=== PATIENT | female | born 1985 | race Caucasian/White ===

== ENCOUNTER → 2024-08-13 10:56 | Outpatient (CLI) | payer BC, SELFPAY ==
--- NOTE | 2024-08-13 11:01 | DI.US.S_ITS ---
PROCEDURE: US OB >= 14 WEEKS FETUS INDICATIONS: COMPLETE ANATOMY SCAN OUTSIDE/PRIOR DATING DATA: The calculations are made using the working POOL of 12/31/2024. TECHNIQUE: Real-time scanning was performed of the fetus, with image documentation and biometric measurements. Endovaginal scanning: Not performed COMPARISON: None. FINDINGS: General: A single living intrauterine gestation is present. Presentation: Vertex. Placenta: Placental position is anterior , without previa. Amniotic fluid index: 13.8 cm, normal range is 5-24 cm. Single deepest vertical pocket is 4.2 cm. heart rate: 140 beats per minute. Maternal cervical canal: 4.9 cm long. Normal lower limit is 2.5 cm. biometrics: Biparietal diameter: 5.1 cm, 21 weeks 4 days Head circumference: 18.5 cm, 20 weeks 6 days Abdominal circumference: 15.7 cm, 20 weeks 6 days Femur length: 3.5 cm, 21 weeks 0 days Clinically estimated gestational age: 20 weeks 0 days Composite gestational age from present scan: 21 weeks 1 day Estimated weight and percentile: 387 g, 91 percentile Anatomic survey: Neuro: Ventricles are non-dilated at less than 10 mm. Cisterna magna is normal at 3-11 mm. Cerebellum is normal in size and morphology. Nuchal skin fold: Normal at less than 6 mm between 14-21 weeks gestational age. Face: Nose and lips, facial profile are normal. Spine: No evidence for spina bifida. Heart: 4-chambered heart is present, with normal ventricular outflow tracts. Diaphragm: Diaphragm is intact. Stomach: Left-sided stomach is present. Kidneys: No hydronephrosis. Normal is less than 5 mm in 2nd trimester, less than 7 mm in 3rd trimester. Cord: 3-vessel cord has orthotopic insertion. Bladder: Normal in size. Extremities: All 4 extremities identified. Other: Left uterine fibroid measuring 2.6 x 3.1 x 2.8 cm. IMPRESSION: Single living intrauterine at 20 weeks 0 days, POOL of 12/31/2024. Estimated weight of 387 g, 91 percentile. Normal anatomy survey otherwise. We strive to produce accurate, complete, and clear reports of imaging services. To assist us in improving patient care, this report was composed using standard report templates and voice recognition software. Therefore, it may contain abnormal punctuation, insertions and/or omissions. Occasional wrong-word or sound-alike substitutions may occur. Though we review the report and make efforts to correct it, we do recommend that the report be read carefully in proper context to recognize any text inaccuracies. Dictated by: Otis Santana M.D. on 08/13/2024 at 14:48 Approved by: Otis Santana M.D. on 08/13/2024 at 15:11
== END ==
PROVIDERS: Referring Provider Advanced Practice Midwife; Visit Provider Advanced Practice Midwife
DX: Z34.92 Encounter for supervision of normal pregnancy, unspecified, second trimester (principal); Z3A.20 20 weeks gestation of pregnancy
CPT/HCPCS: 76811

== ENCOUNTER → 2024-10-08 21:07 | Outpatient (ROUT) | payer BC, SELFPAY ==
[2024-10-08 21:53] LABS: Add Manual Diff / Slide Review NO; Basophils Absolute Auto 100 /uL (0-100); Basophils Percent Auto 0.7 % (0-2); Eosinophils Absolute Auto 200 /uL (0-450); Eosinophils Percent Auto 2.4 % (2-4); Hematocrit 37.7 % (36-46); Hemoglobin 12.6 g/dL (12.0-16.0); Lymphocytes Absolute Auto 2100 /uL (1100-4500); Lymphocytes Percent Auto 23.7 % (25-40); Mean Corpuscular HGB Conc 33.3 % (30-36); Mean Corpuscular Hemoglobin 30.3 PG (26-34); Mean Corpuscular Volume 91.1 fL (80-100); Monocytes Absolute Auto 500 /uL (0-900); Monocytes Percent Auto 5.3 % (3-14); Neutrophils Absolute Auto 6100 /uL (1500-7000); Neutrophils Percent Auto 67.9 % (50-75); Platelet Count 254 X10^3/uL (150-400); Red Blood Cell Count 4.14 X10^6/uL (4.0-5.2); Red Cell Distribution Width 13.3 % (11.6-14.8); White Blood Cell Count 8.9 X10^3/uL (4.5-11.0)
== END ==
LOC: LAB 21:07
PROVIDERS: Visit Provider Advanced Practice Midwife
DX: O99.019 Anemia complicating pregnancy, unspecified trimester (principal)
CPT/HCPCS: 85025

== ENCOUNTER 2024-12-27 05:47 | Inpatient (IN) | payer BC, SELFPAY ==
--- NOTE | 2024-12-27 | PATH_ITS ---
[facility] Accession Number: [id number] No. of containers..01 Tissue . 01 Material submitted: . fallopian tube - BILATERAL FALLOPIAN TUBES . 01 Diagnosis: BILATERAL FALLOPIAN TUBES, SALPINECTOMY: Complete cross-sections of bilataral fallopian tubes with benign paratubal cyst. . MRV 01/03/2025 1256 Local . 01 Electronically signed: . Georgia Solomon MD, Pathologist NPI- [id number] . 01 Gross description: . Received in formalin with two identifiers and bilateral fallopian tubes, are two unoriented fimbriated fallopian tubes, 8.1 x 0.8 cm and 7.0 x 1.0 cm. Both tubes have violaceous, wrinkled serosa with cystic structures up to 1.8 cm in greatest dimension filled with hernández serous fluid. The lumen are stellate and unremarkable, and field representatives director sections to include one-half of bisected fimbriae and cross sections are submitted as follows: . A1: Longer fallopian tube. A2: [place] fallopian tube. ([id number]) /MRV 12/29/2024 1805 Local . 01 Pathologist provided ICD-10: Z30.2 . 01 CPT . 973406 Specimen Comment: A courtesy copy of this report has been sent to [facility] Specimen Comment: A duplicate report has been generated due to demographic updates. Performed at: [address] [address], [place], [place] [id number] MD Burton Montes MD Phone: [phone]
[2024-12-27] MEDS: LACTATED RINGERS 1,000 ML 999 ML IV ×2 (06:25→08:15)
[2024-12-27 06:39] LABS: Add Manual Diff / Slide Review NO; Basophils Absolute Auto 100 /uL (0-100); Basophils Percent Auto 1.2 % (0-2); Eosinophils Absolute Auto 200 /uL (0-450); Eosinophils Percent Auto 3.6 % (2-4); Hemoglobin 12.5 g/dL (12.0-16.0); Lymphocytes Absolute Auto 2000 /uL (1100-4500); Lymphocytes Percent Auto 31.1 % (25-40); Mean Corpuscular HGB Conc 33.7 % (30-36); Mean Corpuscular Hemoglobin 30.3 PG (26-34); Mean Corpuscular Volume 89.9 fL (80-100); Monocytes Absolute Auto 400 /uL (0-900); Monocytes Percent Auto 6.4 % (3-14); Neutrophils Absolute Auto 3800 /uL (1500-7000); Neutrophils Percent Auto 57.7 % (50-75); Platelet Count 218 X10^3/uL (150-400); Red Blood Cell Count 4.12 X10^6/uL (4.0-5.2); Red Cell Distribution Width 14.1 % (11.6-14.8); White Blood Cell Count 6.5 X10^3/uL (4.5-11.0)
[2024-12-27] MEDS: CITRIC ACID/SODIUM CITRATE 15 ML SOLUTION 30 ML PO (07:23)
--- NOTE | 2024-12-27 07:43 | PM.OBHP.IH.1 ---
OB HPI Date/Time Date of admission: 12/27/24 Date Patient Seen: 12/27/24 Time Patient Seen: 07:30 History of Present Condition Chief complaint: INPT C SECTION POOL Calculator Estimated Delivery Date Method Current WG Current Estimate 12/31/24 Manual 39w 3d : 2 Para: 1 Narrative: 39yo at 39+3wks admitted for planned repeat with bilateral salpingectomy. She has no new complaints or concerns today. care: good care Dating criteria OB: LMP confirmed by 1st trimester US Ultrasounds: normal mid trimester US Narrative: low risk XY cfDNA Group B strep positive Hx of prior --> arrest of dilation; [x ] schedule repeat 39wks-- scheduled for 12/27/24 Desired sterilization--> [x] state consent form signed; [ ] surgical consent- day of surgery Advanced maternal age (>40yo) [facility] Indications Operative indications ( section): previous uterine surgery Preadmission Labs Last OB Lab Results: Blood Type Pending Today, 06:25 Antibody Screen Pending Today, 06:25 Hct, (36-46) 37.0 % Today, 06:25 Hgb, (12.0-16.0) 12.5 g/dL Today, 06:25 Glucose Tolerance Testin hr (negative) -: Chlamydia screen: negative, Gonorrhea screen: negative and Urine: negative -: PAP smear: Normal Genetic Screens: Cell-free DNA: Normal External Labs -: Urine: negative Evaluation Evaluation Baseline heart rate: 135 Variability: Moderate (11-25) monitor accelerations: Present Monitor Decelerations: Absent Category of Tracing: Reactive PFSH Social History Smoking Status: Former smoker Meds Home Medications and Allergies Home Medications ?Medication ?Instructions ?Recorded ?Confirmed ?Type calcium acetate 668 mg (169 mg 668 mg PO ONCE 09/13/24 09/13/24 History calcium) tablet docosahexaenoic acid 200 mg mg PO 09/13/24 09/13/24 History capsule ( DHA) Allergies Allergy/AdvReac Type Severity Reaction Status Date / Time Sulfa (Sulfonamide Allergy Mild Hives Verified 09/13/24 09:38 Antibiotics) Review of Systems Review of Systems ROS: Yes All systems reviewed with the patient and are negative except as otherwise documented OB Exam Vital signs Blood Pressure: 120/83 Pulse Rate: 57 HENMT Head: normal to inspection and normocephalic Eyes General: appearance normal, both eyes and all related structures Resp Effort & Inspection: normal respiratory effort and able to speak in complete sentences Extremities Lower extremity: Yes normal to inspection GI Inspection: normal to inspection Other: gravid, nontender, nondistended Objective Labs 12/27/24 06:25 Labs: Laboratory Results - last 24 hr 12/27/24 06:25 WBC 6.5 RBC 4.12 Hgb 12.5 Hct 37.0 MCV 89.9 MCH 30.3 MCHC 33.7 RDW 14.1 Plt Count 218 Neut % (Auto) 57.7 Lymph % (Auto) 31.1 Patrick % (Auto) 6.4 Eos % (Auto) 3.6 Baso % (Auto) 1.2 Neut # (Auto) 3800 Lymph # (Auto) 2000 Patrick # (Auto) 400 Eos # (Auto) 200 Baso # (Auto) 100 Assessment and Plan Assessment and Plan Assessment and Plan narrative: 39yo at 39+3wks admitted for planned repeat with bilateral salpingectomy for sterilization. -CBC, T&S on admission -NST on admission -neuraxial anesthesia -GBS pos, surgical prophylaxis with 2g Ancef planned -PPH risk low -VTE risk low, SCDs in the OR -will move to OR for delivery once all teams ready counseling: It was explained to the patient that a section is a surgery to deliver the baby through an incision in the abdominal wall and uterus.? All procedures can be associated with risk and unforeseen complications, which can be immediate or delayed.? Risks and complications of section include, but are not limited to:? infection of the uterus, pelvic organs, or skin; inadvertent injury to internal organs such as the bowel, bladder, or possibly even the baby; blood loss, transfusion, and/or life-threatening hemorrhage requiring hysterectomy; blood clots in the legs, pelvic organs, or lungs; adverse reaction to medications or anesthesia during surgery; development of placenta accreta spectrum in a subsequent ; and increased risk of section in a subsequent . Time-Based Coding :: [30min] spent with patient and on the chart (including review of chart, obtaining history, exam, reviewing outside data, placing orders, documenting exam and treatment plan, and counseling patient) on [6/9/25].
[2024-12-27 07:50] VITALS: BP 120/83; PULSE 57
[2024-12-27] MEDS: CEFAZOLIN 2 GM/100 ML PREMIX 100 ML IV (08:00)
--- NOTE | 2024-12-27 08:51 | SUR.OPER ---
Supine on Padded OR bed, head on pillow, safety belt at thigh, arms secured on padded arm boards at <90 degrees abduction. Bump under right buttock. Legs uncrossed with pillow under knees, gel pad to heels, tape over blanket to lower legs.
[2024-12-27] MEDS: ACETAMINOPHEN IV 1,000 MG/100 ML VIAL 400 MG IV (08:56)
--- NOTE | 2024-12-27 08:56 | SUR.OPER ---
Pre-procedure [id number]. Viable baby born at 0831.
--- NOTE | 2024-12-27 09:13 | P.PCN_ITS ---
Procedures Date/Time Date of procedure: 12/27/24 Time of procedure: 08:31 General Procedure description: Licensed Insurance Sales Agent Documentation I assisted the OB senior production supervisor in the section and bilateral tubal ligation for this patient. My responsibilities included retracting and suctioning, providing fundal pressure during delivery and following with suture during closure. Please see the OB's note for details of the surgery.
--- NOTE | 2024-12-27 09:21 | P.OP_ITS ---
Operative Date/Time/Diagnoses Date of procedure: 12/27/24 Time of procedure: 08:00 Pre-op diagnosis: 1. Valdez intrauterine gestation at 39+3 weeks 2. History of prior section 3. Undesired future fertility 4. Advanced maternal age 5. Group B strep carrier Post-op diagnosis: same (delivered via repeat ) Procedure & Clinicians Procedure: Repeat low transverse section Bilateral salpingectomy Same procedure as scheduled: Yes Indications: 39yo at 39+3wks counseled and consented for repeat with bilateral salpingectomy. Surgeon: Lita Fajardo Broadband Installer: Caprice Villafana Reason for Broadband Installer: Broadband Installer was necessary for timely, efficient, and safe completion of the procedure. Anesthesia Type: Spinal Operative Notes Findings: Normal-appearing uterus and bilateral fallopian tubes and ovaries. Clear fluid noted with AROM. Delivery productive of a viable male in cephalic presentation with APGARs 5/9 and weighing 3601g. Specimen(s): tubes/segments of tubes (bilateral fallopian tubes) Intraoperative meds administered: Acetaminophen, Duramorph, Ketorolac and Pitocin Applied: Catheter Estimated Blood Loss (mL): 900 Blood products transfused: none Procedure in detail: The risks, benefits, indications and alternatives of the procedure were reviewed with the patient and informed consent was obtained. The patient was taken to the operating room where spinal anesthesia was obtained without difficulty and was found to be adequate. Sequential compression devices were placed bilaterally for VTE prophylaxis. She was then prepped and draped in the normal, sterile fashion in the dorsal supine position with a leftward tilt. She received 2g Ancef for surgical prophylaxis. A Pfannenstiel skin incision was then made with the scalpel and carried through to the underlying layer of fascia with Bovie cautery. The fascia was incised in the midline and the incision extended laterally with the Kumar scissors. The superior aspect of the incision was grasped and tented up with Chantal clamps and the rectus muscles were dissected off sharply. The rectus muscles were then at the midline. The peritoneum was identified, and entered sharply. The peritoneal incision was then extended horizontally, superiorly and inferiorly, with good visualization of the bladder, and aided with Bovie cautery to create additional space. The Denis retractor was then inserted. The vesicouterine peritoneum was then identified, grasped with pick-ups, and entered sharply with Metzenbaum scissors. This incision was then extended laterally and the bladder flap was created digitally. The lower uterine segment was incised in a transverse fashion with the scalpel. The uterine incision was then extended manually in a cephalad/caudad direction. The amniotic sac was artificially ruptured, productive of clear fluid. The inf ant?s head delivered atraumatically through the hysterotomy without difficulty, followed by the body.? The cord was doubly clamped and cut after a 60sec delay with the infant handed off to the waiting pediatrics team. During the delayed cord clamping, several uterine vessels were noted to be bleeding profusely, thus these were clamped with ringed forceps. The placenta was then removed spontaneously with gentle traction on the umbilical cord. The uterus was then left in-situ and cleared of all clots and debris. The uterine incision was repaired with 0-vicryl in a running, locked fashion with excellent hemostasis achieved. Attention was then directed to the fallopian tubes. The patient?s left fallopian tube was palpated, grasped with a Aaron clamp, and followed out to its fimbriated end. In a stepwise fashion, the left fallopian tube was removed from the fimbriated end to 1cm from the cornual end with ultimate excision of the fallopian tube using the Ligasure. The same procedure was performed on the patient?s right side to excise the right fallopian tube. Each pedicle was inspected and noted to be hemostatic. The hysterotomy was again inspected and noted to be hemostatic. The paracolic gutters were cleared of all clot and debris. The Denis retractor was then removed. The fascia was reapproximated with 0-vicryl in a running fashion. The subcutaneous layer was closed with 3-0 vicryl in simple, interrupted sutures. The skin was closed with 4-0 monocryl in a subcuticular fashion. The incision was then dressed with steri-strips and a pressure dressing was applied. At the completion of the case, a Crede maneuver was performed with good uterine tone and minimal vaginal bleeding noted.? The patient tolerated the procedure well. Sponge, lap and needle counts were correct x3. The patient was taken to the recovery room in stable condition. Complications: none Baby 1: Delivery Date: 12/27/24 Delivery Time: 08:31 Infant Gender: Male Presentation: vertex Placental Delivery Description: Spontaneous Cord Vessel Description: 3 Vessels and Nuchal Cord (x1) Post-operative Condition: stable Disposition: PACU Aftercare: routine postop
[2024-12-27 09:24] VITALS: BP 115/67; PULSE 60; RESP 16; TEMP 36.3; O2SAT 99
[2024-12-27 09:29] VITALS: BP 109/67; PULSE 61; RESP 15; O2SAT 97
[2024-12-27 09:34] VITALS: BP 123/65; PULSE 63; RESP 16; O2SAT 97
[2024-12-27 09:39] VITALS: BP 117/70; PULSE 69; RESP 15; TEMP 36.2; O2SAT 97
[2024-12-27] MEDS: KETOROLAC 30 MG/ML VIAL IV ×2 (14:57→21:11)
[2024-12-27] MEDS: LACTATED RINGERS 1,000 ML 125 ML IV (15:28)
[2024-12-27] MEDS: ACETAMINOPHEN 325 MG TABLET 650 MG PO ×2 (16:48→23:43)
[2024-12-27] MEDS: LANOLIN OINT 7 GM 1 APPLIC TOP (23:43)
[2024-12-28] MEDS: diphenhydrAMINE 50 MG/ML VIAL 25 MG IV (02:18)
[2024-12-28] MEDS: KETOROLAC 30 MG/ML VIAL IV (03:08)
[2024-12-28] MEDS: ACETAMINOPHEN 325 MG TABLET 650 MG PO ×4 (05:25→23:31)
[2024-12-28 06:16] LABS: Add Manual Diff / Slide Review NO; Basophils Absolute Auto 0 /uL (0-100); Basophils Percent Auto 0.3 % (0-2); Eosinophils Absolute Auto 100 /uL (0-450); Eosinophils Percent Auto 0.9 % (2-4); Hemoglobin 9.7 g/dL (12.0-16.0); Lymphocytes Absolute Auto 2300 /uL (1100-4500); Lymphocytes Percent Auto 20.8 % (25-40); Mean Corpuscular HGB Conc 34.5 % (30-36); Mean Corpuscular Volume 89.8 fL (80-100); Monocytes Absolute Auto 700 /uL (0-900); Monocytes Percent Auto 6.7 % (3-14); Neutrophils Absolute Auto 8000 /uL (1500-7000); Neutrophils Percent Auto 71.3 % (50-75); Platelet Count 175 X10^3/uL (150-400); Red Blood Cell Count 3.12 X10^6/uL (4.0-5.2); Red Cell Distribution Width 13.9 % (11.6-14.8); White Blood Cell Count 11.2 X10^3/uL (4.5-11.0)
[2024-12-28] MEDS: PRENATAL VIT,CALC/IRON/FOLIC 1 TABLET 1 TAB PO (09:04)
[2024-12-28] MEDS: DOCUSATE 100 MG CAPSULE PO (09:04)
[2024-12-28] MEDS: IBUPROFEN 600 MG TABLET PO ×3 (09:04→20:29)
--- NOTE | 2024-12-28 12:32 | PM.OBPN.1 ---
Subjective - OB Subjective Patient comments: no complaints, pain well controlled and tolerating diet baby status: doing well feeding status: exclusively breast feeding Date Patient Seen: 12/28/24 Time Patient Seen: 12:10 Exam Vital Signs (past 8 hours): Oxygen Delivery Method Room Air vitals reviewed in OBIX, within normal parameters Const General: healthy appearing, comfortable and No acute distress Resp Effort & Inspection: normal respiratory effort and able to speak in complete sentences GI Other: soft, appropriately tender, nondistended Skin Other: Pfannenstiel incision clean/dry/intact with steri-strips in place Neuro General: patient alert and patient awake Cognition: normal cognition Speech: speech normal Psych Mood: congruent mood Affect: normal affect Objective Labs 12/28/24 06:05 Labs: Laboratory Results - last 24 hr 12/28/24 06:05 WBC 11.2 H D RBC 3.12 L Hgb 9.7 L Hct 28.0 L MCV 89.8 MCH 31.0 MCHC 34.5 RDW 13.9 Plt Count 175 Neut % (Auto) 71.3 Lymph % (Auto) 20.8 L Monroe % (Auto) 6.7 Eos % (Auto) 0.9 L Baso % (Auto) 0.3 Neut # (Auto) 8000 H Lymph # (Auto) 2300 [place] # (Auto) 700 Eos # (Auto) 100 Baso # (Auto) 0 Assessment & Plan Assessment and Plan (1) Delivery of second by section using transverse incision of lower segment of uterus: Status: Acute (2) Sterilization procedure performed: Status: Acute (3) Acute postoperative anemia due to expected blood loss: Status: Acute (4) Group B Streptococcus carrier, delivered, current hospitalization: Status: Acute (5) Advanced maternal age (AMA), 40 years or greater: Status: Acute (6) 39 weeks gestation of : Status: Acute Plan day: 1 plan OB: routine postop care Comments: 39-year-old G2 now P2 POD#1 s/p RLTCS with BS, doing well in the period. -advised to take PO iron for the next 3 months to help recover her iron stores -plan for discharge to home tomorrow, with 1 week incision check in my office, then 6 weeks with [facility] Time-Based Coding :: [20min] spent with patient and on the chart (including review of chart, obtaining history, exam, reviewing outside data, placing orders, documenting exam and treatment plan, and counseling patient) on [12/28/24].
[2024-12-29] MEDS: OXYCODONE IR 5 MG TABLET PO (00:38)
[2024-12-29] MEDS: IBUPROFEN 600 MG TABLET PO ×2 (02:59→08:41)
[2024-12-29] MEDS: ACETAMINOPHEN 325 MG TABLET 650 MG PO (05:47)
--- NOTE | 2024-12-29 07:03 | P.DS_ITS ---
Discharge Providers Provider Date of admission: 12/27/24 05:47 Discharge Date: 12/29/24 Primary care physician: Doctor Ebenezer MD Consults: 12/27/24 09:59 Consult to Sheet Metal Apprentice Routine Comment: Discharge provider: Caprice Villafana CNM Summary Hospital Course Date Patient Seen: 12/29/24 Time Patient Seen: 07:03 Diagnoses: see below Hospital Course: Scheduled repeat with bilateral tubal ligation performed 12/27/2024 with subsequent anemia d/t blood loss. PPD2: Stable. Voiding, ambulating and independently. Tolerating a general diet. Pain is well controlled with PO medication. Peripartum Data Infant Delivery Method: Natural Vaginal Laceration Description: None Episiotomy description: None Discharge Diagnosis (1) Delivery of second by section using transverse incision of lower segment of uterus: Status: Acute (2) Sterilization procedure performed: Status: Acute (3) Acute postoperative anemia due to expected blood loss: Status: Acute (4) Group B Streptococcus carrier, delivered, current hospitalization: Status: Acute (5) Advanced maternal age (AMA), 40 years or greater: Status: Acute (6) 39 weeks gestation of : Status: Acute Status at Discharge Cognitive/behavioral status at discharge: oriented and calm Functional status at discharge: independent ambulation Overall status at discharge: patient is progressing back to baseline Time Spent with Patient Time attestation: Total time spent providing and/or coordinating discharge services: Time spent: Less than 30 minutes Objective Labs 12/28/24 06:05 Exam Vital Signs (past 8 hours): Oxygen Delivery Method Room Air BP 109/57, HR 63bpm, RR 18, T 97F Temporal, SpO2 97% on RA Const General: healthy appearing and comfortable Nutritional Appearance: average body habitus Other: Fundus firm @ U-1, lochia scant without clots. Perineum intact. Skin Other: LTAI well approximated with steri-strips in place with no erythema. Scant bleeding on right side of incision, covering 2 steri-strips, no active bleeding. Psych Mood: congruent mood Affect: normal affect Discharge Plan Discharge Plan Patient Disposition: Home Provider Discharge Comment: Take ibuprofen 600 mg every 6 hours and acetaminophen 650 mg every 6 hours. Use oxycodone 5 mg every 4 hours as needed for breakthrough pain. Take oral iron supplementation for the next 3 months to help your body recover its iron stores due to the blood loss with surgery. Avoid lifting greater than 20lbs for at least 6 weeks. Avoid placing anything in the vagina for 6 weeks. Discharge orders & Medications Prescriptions: New oxycodone 5 mg Tablet 5 mg PO Q4H PRN (Reason: Pain, Moderate (4-6)) Qty: 10 0RF Continued DHA 200 mg capsule PO Follow up/Referrals: [facility] [Provider Group] Doctor Sol MD [Primary Care Provider, Medical] Referral Note: 2 week and 6 week follow-up appointments are in your email Lita Fajardo DO [Physician, [facility]] Diet/Activity/Treatments Diet: Diet as Tolerated Activity: As tolerated Skin/Wound/Dressing Care Skin care: You may shower normally. Report to your healthcare provider any signs of infection, such as:: chills, fever, increased pain, unusual drainage and unusual redness Dressing: You have steri-strips in place that will fall off in one week. Visit Report/Discharge Packet Instructions: DI for , DI for Depression, DI for Prescription Opioid Use Stand Alone Forms: Patient Portal/API, Stroke Signs & Symptoms Discharge Data Primary Care Provider: Doctor Ebenezer
[2024-12-29] MEDS: DOCUSATE 100 MG CAPSULE PO (08:42)
[2024-12-29] MEDS: PRENATAL VIT,CALC/IRON/FOLIC 1 TABLET 1 TAB PO (08:42)
[2024-12-29 09:59] VITALS: BP 108/64; PULSE 67; RESP 16; TEMP 36.7
== END 2024-12-29 10:54 | disposition home or self-care (01) | DRG 785 ==
PROVIDERS: Admitting Provider Student in an Organized Health Care Education/Training Program; Referring Provider Student in an Organized Health Care Education/Training Program; Visit Provider Student in an Organized Health Care Education/Training Program
PROC: 10D00Z1 Extraction of Products of Conception, Low, Open Approach (ICD-10-PCS; CPT 59514; principal; 2024-12-27 07:45)
DX: O34.211 Maternal care for low transverse scar from previous cesarean delivery (principal); Z3A.39 39 weeks gestation of pregnancy; Z37.0 Single live birth; O99.824 Streptococcus B carrier state complicating childbirth; Z87.891 Personal history of nicotine dependence; Z30.2 Encounter for sterilization
CPT/HCPCS: 36415; 59050; 85025; 86850; 86900; 86901; J0131; J0690; J1100; J1200; J1885; J2274; J2405